=== PATIENT | female | born 2000 | race Two or more races ===

== ENCOUNTER 2023-07-16 08:39 | Outpatient (CLI) | payer OTHER | END 2023-07-16 08:43 | disposition home or self-care (01) | LOC: PRENATAL 08:39 | PROVIDERS: ATTEND Obstetrics & Gynecology Maternal & Fetal Medicine | DX: O36.80X0 Pregnancy with inconclusive fetal viability, not applicable or unspecified (principal); Z36.82 Encounter for antenatal screening for nuchal translucency; Z36.9 Encounter for antenatal screening, unspecified; Z3A.13 13 weeks gestation of pregnancy ==

== ENCOUNTER 2023-09-04 08:56 | Outpatient (CLI) | payer OTHER | END 2023-09-04 08:58 | disposition home or self-care (01) | LOC: PRENATAL 08:56 | PROVIDERS: ATTEND Obstetrics & Gynecology Maternal & Fetal Medicine | DX: O35.9XX0 Maternal care for (suspected) fetal abnormality and damage, unspecified, not applicable or unspecified (principal); O35.3XX0 Maternal care for (suspected) damage to fetus from viral disease in mother, not applicable or unspecified; O44.00 Complete placenta previa NOS or without hemorrhage, unspecified trimester; Z3A.20 20 weeks gestation of pregnancy ==

== ENCOUNTER 2023-10-31 00:04 | Emergency (ER) | payer OTHER ==
[~2023-10-31] VITALS: Ht 162.6 cm; Wt 77.6 kg
[2023-10-31] MEDS ORDERED: ATABEX OB TABL1 EACH PO (01:47)
[2023-10-31] MEDS ORDERED: PROMETHAZINE HCL 50 MG/ML AMPUL IM STA (02:24)
[2023-10-31] MEDS ORDERED: 0.9 % SODIUM CHLORIDE 1,000 ML IV STA (02:24)
[2023-10-31] MEDS ORDERED: FAMOtidine 10 MG/ML (4ML VIAL) IV PUSH STA (02:25)
[2023-10-31] MEDS ORDERED: ONDANSETRON HCL 2 MG/ML VIAL IV STA (02:25)
[2023-10-31] MEDS ORDERED: 0.9 % SODIUM CHLORIDE 1,000 ML IV SCH (02:45)
[2023-10-31 03:05] LABS: HEMATOCRIT 30.5 % (36.0-45.00); HEMOGLOBIN 10.8 g/dL (12.0-15.00); MEAN CORPUSCULAR HEMOGLOBIN 31.2 pg (27.00-32.0); MEAN CORPUSCULAR HGB CONC 35.4 g/dl (32.0-36.0); PLATELET COUNT 290 K/uL (150-450); RED BLOOD COUNT 3.46 M/uL (4.00-6.00); RED CELL DISTRIBUTION WIDTH 12.2 % (11.5-14.5)
[2023-10-31 04:02] LABS: ALBUMIN 2.5 gm/dL (3.4-5.0); BILIRUBIN TOTAL 0.25 mg/dL (0.3-1.2); CALCIUM 8.3 mg/dL (8.5-10.1); CREATININE SERUM 0.54 mg/dL (0.55-1.02); GFR 139.9; GLOBULINA 3.9 G/DL (2.4-3.5); POTASSIUM 3.5 mEq/L (3.5-5.1); TOTAL PROTEIN 6.4 gm/dL (6.4-8.2)
== END 2023-10-31 05:07 | disposition home or self-care (01) ==
LOC: ER 00:04
DX: K52.89 Other specified noninfective gastroenteritis and colitis (principal)

== ENCOUNTER 2024-03-16 08:00 | Outpatient (CLI) | payer OTHER ==
[~2024-03-16 08:00] MED LIST: ATABEX OB TABL1 EACH PO
== END 2024-03-16 08:12 | disposition home or self-care (01) ==
LOC: TOM 08:00
PROVIDERS: ATTEND Student in an Organized Health Care Education/Training Program
DX: R10.2 Pelvic and perineal pain (principal)

== ENCOUNTER 2024-09-09 09:27 | Emergency (ER) | payer OTHER ==
[~2024-09-09] VITALS: Ht 162.6 cm; Wt 66.7 kg
[2024-09-09 10:49] LABS: HEMATOCRIT 41.5 % (36.0-45.00); HEMOGLOBIN 13.8 g/dL (12.0-15.00); MEAN CELL VOLUME 88.9 fL (80.00-100.00); MEAN CORPUSCULAR HEMOGLOBIN 29.4 pg (27.00-32.0); MEAN CORPUSCULAR HGB CONC 33.1 g/dl (32.0-36.0); PLATELET COUNT 348 K/uL (150-450); RED BLOOD COUNT 4.67 M/uL (4.00-6.00); RED CELL DISTRIBUTION WIDTH 13.6 % (11.5-14.5)
[2024-09-09 11:22] LABS: CALCIUM 8.6 mg/dL (8.5-10.1); CREATININE SERUM 0.73 mg/dL (0.55-1.02); GFR 97.94; POTASSIUM 3.97 mEq/L (3.5-5.1)
[2024-09-09 12:11] LABS: PH,URINE 5.5 (5.0-8.0); URINE APPEARANCE Clear; URINE BACTERIA 1615.5 uL (0.0-1933); URINE BILIRRUBIN Negative (NEGATIVE); URINE BLOOD Negative; URINE COLOR Yellow; URINE EPITHELIAL CELLS 11.7 uL (0.0-38.8); URINE GLUCOSE Negative (NEGATIVE); URINE KETONE Trace (NEGATIVE); URINE LEUKOCYTE Negative; URINE NITRATE Negative; URINE PROTEIN Negative (NEGATIVE); URINE RBC 15.3 uL (0.0-20.8); URINE UROBILINOGEN 0.2 E.U./dl; URINE WBC 10.9 uL (0.0-23.2)
[2024-09-09 12:49] LABS: URINE CAST 0.58 uL (0.0-1.40)
== END 2024-09-09 14:55 | disposition home or self-care (01) ==
LOC: ER 09:29
PROVIDERS: Emergency Medicine
DX: R10.9 Unspecified abdominal pain (principal)
CPT/HCPCS: 36415; 74177; Q9965